=== PATIENT | female | born 1950 ===

== ENCOUNTER 2018-02-18 11:41 | Day surgery (SDC) | payer MEDICARE ==
[~2018-02-18] VITALS: Ht 160 cm; Wt 78.6 kg
[~2018-02-18 11:41] MED LIST: HYDACE5 PO; MULVITMIND PO
[2018-02-18] MEDS ORDERED: SIMV10 (12:16)
[2018-02-18] MEDS ORDERED: ABAT250V (12:16)
[2018-02-18] MEDS ORDERED: LOSA50 (12:16)
[2018-02-18] MEDS ORDERED: Aspir 8181 MG (12:17)
[2018-02-18] MEDS ORDERED: HYDCHL12.5 (12:17)
== END 2018-02-18 14:08 | disposition home or self-care (01) ==
LOC: ORSCSDS 11:41
PROVIDERS: Surgery
PROC: 3E0H8GC Introduction of Other Therapeutic Substance into Lower GI, Via Natural or Artificial Opening Endoscopic (ICD-10-PCS; principal; 2018-02-18 13:00)
PROC: 0DBK8ZX Excision of Ascending Colon, Via Natural or Artificial Opening Endoscopic, Diagnostic (ICD-10-PCS; principal; 2018-02-18 13:00)
DX: Z12.11 Encounter for screening for malignant neoplasm of colon (principal); D12.2 Benign neoplasm of ascending colon; K64.4 Residual hemorrhoidal skin tags; K64.8 Other hemorrhoids; I10 Essential (primary) hypertension; E78.5 Hyperlipidemia, unspecified; F41.9 Anxiety disorder, unspecified; Z79.899 Other long term (current) drug therapy; Z87.891 Personal history of nicotine dependence
CPT/HCPCS: 88305; J7120